=== PATIENT | female | born 1985 | race American Indian/Alaskan Native ===

== ENCOUNTER 2017-01-07 23:15 | Emergency (ER) | payer MEDICAID ==
[2017-01-07] MEDS ORDERED: Lactated Ringer's 1,000 ML IV SCH (23:45)
[2017-01-08 00:12] VITALS: BMI 28.3
[2017-01-08 01:07] LABS: RBC URINE 121 /hpf (0-3); URINE BACTERIA RARE (<OCC); URINE BILIRUBIN NEGATIVE (NEGATIVE); URINE BLOOD LARGE (NEGATIVE); URINE GLUCOSE (UA) NEG (Normal); URINE KETONE NEGATIVE (NEGATIVE); URINE LEUKOCYTE ESTERASE TRACE Leu/uL (Negative); URINE PROTEIN 100 mg/dL (NEGATIVE); URINE UROBILINOGEN 0.2-1.0 mg/dL (0.2-1.0); WBC URINE 8 /hpf (0-5)
[2017-01-08 01:08] LABS: URINE COLOR LIGHT RED (YELLOW)
[2017-01-08] MEDS ORDERED: Lactated Ringer's 1,000 ML IV ONE (01:32)
--- NOTE | 2017-01-08 07:44 | OBHP ---
Datetime: 01/08/2017 00:11 IP Adm Impression: Term, intrauterine IP Admit Plan: Observation/Evaluation Admit Comment, IP Provider: 31 y/o F , IUP@38.2 GA, ELLA 01/19/17. pt comes to [facility] c/o Bleeding p er vagina with urination. bleeding seen 20 mins ago, pink color blood about a tea spoon. pt admits tatum ving sex 2 days ago. no dysuria, burning or hx of UTI. pt denies any pain, nausea, vomiting, SOB or c hest pain. - good FM, no CTX/LOF PNC: [facility] women health services, Dr. Mcleod PNI: no issue with this so far PMH: none PSH: none POBH: unremarkable Allg: NKDA, lactose intolerance Meds: PNV SH: no alcohol, smoking or illicit drug use ROS: as per HPI VS: Afebrile, Stable 143/89 FHR reassuring PE: unremarkable speculum exam was done: no bleeding seen closed cervix , Intact membrane Urine with blood was collected A/P: 31 y/o F , IUP@38.2 GA, ELLA 01/19/17. pt comes to [facility] c/o Bleeding per vagina. - observe and re-evaluate - UA - monitor VS/CTX/FHR - IVF Case discussed and examined pt with Dr. Masters --- Yamel Colvin, PGY-1 addendum: UA is back, will start STAT Keflex 500mg and 1L IVF D/c home with 7 days Keflex 500mg BID discussed with Dr. Masters ---MOY, PGY-1 0BH addendum: Patient patient seen and examined by me agree. Agree with above assessment and past and plan was f paulaing additions and clarifications. Patient presents with complaints of having noted blood in her urine and a pinkish color when she wiped on the tissue. She denies abdominal pain contractions or low er back pain. Denies decrease fm, headaches, blurred vision, scotomata moderate, right upper quadrant pain. O: Sterile speculum exam: Positive whitish discharge no blood in the vault; gross hematuria noted on urine sample Plan: 1. As above 2. Increase water intake 3. Follow-up within 5 days at OB clinic Pelvic Type - PN: Adequate Extremities - PN: Normal Abdomen - PN: Normal Back - PN: Normal Breast - PN: Normal Lungs - PN: Normal Heart - PN: Normal Thyroid - PN: Normal Neurologic - PN: Normal HEENT - PN: Normal General - PN: Normal FHR - Baseline A Provider: 155 Membranes, Provider: Intact Comments, ACOG Physical Exam: speculum exam was done: no bleeding seen closed cervix , Intact membrane Pool Provider: Negative Vital Signs Provider: Reviewed; Within Normal Limits IP Chief Complaint: Vaginal bleeding NICHD Variability Prov Fetus A: Moderate 6-25bpm NICHD Accel Fetus A IP Provider: [id number] FHR Category Provider Fetus A: Category I NICHD Decel Fetus A IP Provider: None Dilatation, Provider: 0 Effacement, Provider: thick Station, Provider: high Genitourinary Exam: Normal DTRs - PN: Normal
[2017-01-08 11:17] VITALS: BP 137/80; PULSE 80; TEMP 98.8; O2SAT 100
== END 2017-01-08 03:05 | disposition home or self-care (01) ==
LOC: H.EROB2 23:15
DX: O47.1 False labor at or after 37 completed weeks of gestation (principal); Z3A.38 38 weeks gestation of pregnancy
CPT/HCPCS: 81003; 87086; 99283; J7120

== ENCOUNTER 2017-01-11 02:55 | Emergency (ER) | payer MEDICAID ==
[2017-01-11 04:50] LABS: BASO % 0.5 % (0.0-2.0); EOS % 0.6 % (0.0-4.0); HEMATOCRIT 35.1 % (34.0-47.0); LYMPH # 1.7 K/uL (1.0-4.3); LYMPH % 26.1 % (20.0-40.0); MEAN CELL VOLUME 90.8 fl (81.0-99.0); MEAN CORPUSCULAR HEMOGLOBIN 29.9 pg (27.0-31.0); MEAN CORPUSCULAR HGB CONC 32.9 g/dL (33.0-37.0); MEAN PLATELET VOLUME 11.2 fl (7.2-11.7); MONO # 0.9 K/uL (0.0-0.8); MONO % 13.5 % (0.0-10.0); NEUT # 3.8 K/uL (1.8-7.0); NEUT % 59.3 % (50.0-75.0); NRBC % 0.1 % (0.0-0.0); RED CELL DISTRIBUTION WIDTH 15.1 % (11.5-14.5); WHITE BLOOD COUNT 6.4 K/uL (4.8-10.8)
[2017-01-11 04:54] LABS: ALKALINE PHOSPHATASE 114 U/L (38-126); ALT/SGPT 53 U/L (9-52); AST/SGOT 37 U/L (14-36); BILIRUBIN,TOTAL 0.3 mg/dl (0.2-1.3); BLOOD UREA NITROGEN 9 mg/dl (7-17); CALCIUM 9.8 mg/dL (8.4-10.2); CARBON DIOXIDE 23 mmol/L (22-30); CHLORIDE 105 mmol/L (98-107); GFR AFRICAN-AMERICAN > 60; GLUCOSE,RANDOM 80 mg/dL (65-105); POTASSIUM 3.8 MMOL/L (3.6-5.0); SODIUM 139 mmol/l (132-148); TOTAL PROTEIN 6.9 G/DL (6.3-8.2); URIC ACID 4.3 mg/Dl (2.2-7.5)
[2017-01-11 04:56] LABS: PARTIAL THROMBOPLASTIN TIME 26.9 Seconds (25.6-37.1)
[2017-01-11 04:58] LABS: RBC URINE 10 /hpf (0-3); URINE BACTERIA RARE (<OCC); URINE BILIRUBIN NEGATIVE (NEGATIVE); URINE BLOOD LARGE (NEGATIVE); URINE COLOR YELLOW (YELLOW); URINE GLUCOSE (UA) NEG (Normal); URINE KETONE NEGATIVE (NEGATIVE); URINE LEUKOCYTE ESTERASE NEG Leu/uL (Negative); URINE PROTEIN 30 mg/dL (NEGATIVE); URINE UROBILINOGEN 0.2-1.0 mg/dL (0.2-1.0); WBC URINE 3 /hpf (0-5)
--- NOTE | 2017-01-11 05:47 | OBHP ---
Datetime: 01/11/2017 04:15 IP Adm Impression: Term, intrauterine IP Chief Complaint Other: Hematuria IP Admit Plan: Discharge home Admit Comment, IP Provider: 31 yo G1 at 38+6 wks w/ EDC 01/19/2017, reports that she noticed blood i n urine at 12 am, was seen in [facility] on 01/08/2017 for blood in urine and was sent home w/ rx cephalexi n 500 BID. Pt reports that there was more blood in her urine on 01/08/2017. Pt reports that the abx are causing diarrhea. Pt reports that she was nervous when she arrived here and that may be why her BP was elevated. Pt denies feeling ctxns, VB, LOF and reports movement. Pt reports that she has urinary frequency w/ the , denies dysuria. Pt denies DEUTSCH, changes in vision, abdominal p ain, N/V and back pain. Pt recieves her care at [facility]. 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 NST reactive. P t told to stop cephalexin and f/u w/ urology outpt. CBC nl, CMP nl except AST and ALT both elevated bby 1 point. Ua w/ large blood, rare bacteria. Pt given rx for CBC and CMP to be redrawn on Wed., 0 01/13/217. Also rec that she have her urine cx followed in clinic. Pt given PEC and labor precautio ns. Extremities - PN: Normal Abdomen - PN: Normal Back - PN: Normal Neurologic - PN: Normal General - PN: Normal FHR - Baseline A Provider: 120's Membranes, Provider: Intact Contraction Comments Provider: irregular EGA AdmitDate IP: 38.6 Vital Signs Provider: Reviewed IP Chief Complaint: Other NICHD Variability Prov Fetus A: Moderate 6-25bpm NICHD Accel Fetus A IP Provider: [id number] FHR Category Provider Fetus A: Category I NICHD Decel Fetus A IP Provider: None Dilatation, Provider: 1 Effacement, Provider: 80 Station, Provider: -1 Genitourinary Exam: Normal
--- NOTE | 2017-01-11 05:47 | OBDCSUM ---
Datetime: 01/11/2017 05:37 Discharged to, Provider: Home Follow up at, Provider: [facility] Disch Instr Activity: Normal activity Disch Instr Diet: Regular Discharge Instructions, Provider: Routine instructions given Discharge Time: 01/11/2017 05:38 Follow up in weeks, Provider: 01/13/2017 @ 0320 pm as scheduled Disch Referrals: None Contraception discussed, Prov: No Disch Activity Restrictions: No exercising Discharge Diagnosis Prov Other: Gross hematuria at 38+ weeks
[2017-01-11 10:35] VITALS: BP 130/79; PULSE 68; RESP 18; TEMP 98; O2SAT 100
== END 2017-01-11 05:40 | disposition home or self-care (01) ==
LOC: H.EROB2 02:55
DX: O26.93 Pregnancy related conditions, unspecified, third trimester (principal); R31.9 Hematuria, unspecified; Z3A.38 38 weeks gestation of pregnancy

== ENCOUNTER 2017-01-12 11:57 | Inpatient (IN) | payer MEDICAID ==
[2017-01-12 13:22] LABS: HEMATOCRIT 35.8 % (34.0-47.0); MEAN CELL VOLUME 90.7 fl (81.0-99.0); MEAN CORPUSCULAR HEMOGLOBIN 29.6 pg (27.0-31.0); MEAN CORPUSCULAR HGB CONC 32.6 g/dL (33.0-37.0); RED CELL DISTRIBUTION WIDTH 15.3 % (11.5-14.5); WHITE BLOOD COUNT 7.1 K/uL (4.8-10.8)
[2017-01-12 13:41] LABS: ALB/GLOB RATIO 1.1 (1.0-2.1); ALKALINE PHOSPHATASE 114 U/L (38-126); ALT/SGPT 48 U/L (9-52); AST/SGOT 32 U/L (14-36); BILIRUBIN,TOTAL 0.5 mg/dl (0.2-1.3); BLOOD UREA NITROGEN 7 mg/dl (7-17); CALCIUM 9.7 mg/dL (8.4-10.2); CARBON DIOXIDE 23 mmol/L (22-30); CHLORIDE 106 mmol/L (98-107); GFR AFRICAN-AMERICAN > 60; GLUCOSE,RANDOM 60 mg/dL (65-105); POTASSIUM 3.7 MMOL/L (3.6-5.0); SODIUM 137 mmol/l (132-148); TOTAL PROTEIN 6.9 G/DL (6.3-8.2); URIC ACID 4.4 mg/Dl (2.2-7.5)
[2017-01-12] MEDS ORDERED: Penicillin G 5 Million Unit Vial IVPB ONE ×2 (13:53→22:29)
[2017-01-12] MEDS: Lactated Ringer's 1,000 ML IV SCH ×3 (14:30→18:20)
--- NOTE | 2017-01-12 15:46 | OBHP ---
Datetime: 01/12/2017 13:25 IP Adm Impression: Term, intrauterine IP Admit Plan: Admit to unit Abdomen - PN: Normal Back - PN: Normal Lungs - PN: Normal Heart - PN: Normal Thyroid - PN: Normal Neurologic - PN: Normal HEENT - PN: Normal General - PN: Normal FHR - Baseline A Provider: 145 Comments, ACOG Physical Exam: Fetus vertex presentation EGA AdmitDate IP: 39.0 Vital Signs Provider: Reviewed Vital Signs Provider Details: Blood pressure : 140/83 IP Indication for Induction: Other IP Indication for Induction Oth: lagging growth x 4 weeks, and HC IP Chief Complaint: Uterine contractions NICHD Variability Prov Fetus A: Moderate 6-25bpm NICHD Accel Fetus A IP Provider: [id number] NICHD Decel Fetus A IP Provider: None Datetime: 01/12/2017 13:13 Admit Comment, IP Provider: 31 yo G1 at 39 wks w/ EDC 01/19/2017, was sent to l and D from [facility], te r she had her ultrasound done, and is showing the BPD is lagging by 4 weeks and HC is lagging b y 4 weeks. Previous U/S two weeks earlier showed the fetus was lagging by 2 weeks. Patient denies a ny CTX, LOF, VB. She has positive movments. - She as noted blood in her urine for which she was given keflex, for possible UTI but then was ca lled to not take it after her urine results came back negative. - PAtients earlier U/S had showed persistent umbilical vein, for which viral studies were done and showed negative. echo was scheduled but patient had issues with her insurance and was not able to get them done. POBHx: U/S has shown decrease in growth currently lagging by 4 weeks, BPD lagging by 4 weeks. With a persistent umbilical vein noted. 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 - Intiate labor protocol - Pen G 5mu loading followed by 2.5 mu Q4 for treatment of penicillin G - LAbs: CBC, type and screen Lamine Mcleod PGY-2 OB Hospitalist on-call: With PGY 2, I saw and examined this patient. Agree with above note... IUP at 39w; low AF (6cm); early labor; GBS+ (results just obtained) PLAN: admit; Discussion with patient about labor, pain managment, deliver, methods/meds augmentati on and . Her questions were answered. Presentation-Admit: Vertex Membranes, Provider: Intact Pool Provider: Negative IP Hx Assessment: The History has been Reviewed and is Current FHR Category Provider Fetus A: Category I Dilatation, Provider: 2 Effacement, Provider: 50 Station, Provider: -2
--- NOTE | 2017-01-12 17:01 | OBPN ---
Datetime: 01/12/2017 16:50 IP Progress Impression: Normal progression of labor; Reassuring heart rate; Reactive non-stres s test IP Informed Consent Obtain: Vaginal Delivery; Risks, Benefits and Alternatives Discussed IP Procedures: Artificial ROM IP Progress Plan: Continue present management; Augmentation Pool Provider: Positive Membranes, Provider: Ruptured Amniotic Fluid Color, Provider: Clear Contraction Comments Provider: 2-5m FHR - Baseline A Provider: 130 Presentation-Admit: Vertex IP Progress Note Comment: SHe is feeling some CTX pain. 08/17. She appears comfortable SVE 50/-2 A; IUP at 39w latent phase of labor AROM/Pitocin at 6miu/h NICHD Accel Fetus A IP Provider: [id number] FHR Category Provider Fetus A: Category I NICHD Variability Prov Fetus A: Moderate 6-25bpm Dilatation, Provider: 2 Effacement, Provider: 50 Station, Provider: -2 NICHD Decel Fetus A IP Provider: None Datetime: 01/12/2017 13:25 Vital Signs Provider: Reviewed Vital Signs Provider Details: Blood pressure : 140/83
[2017-01-12] MEDS: Penicillin G Potassium 2.5 MU in Sodium Chloride 0.9% 100 ML IVPB SCH ×2 (18:00→22:20)
[2017-01-12] MEDS ORDERED: Fentanyl/Bupivacaine HCl 250 ML EPI ONE (19:16)
--- NOTE | 2017-01-13 00:40 | OBPN ---
Datetime: 01/13/2017 00:10 IP Progress Impression: Normal progression of labor; Reassuring heart rate; Rupture of membran es IP Informed Consent Obtain: Vaginal Delivery; Risks, Benefits and Alternatives Discussed IP Progress Plan: Continue present management; Augmentation Pool Provider: Negative Membranes, Provider: Ruptured Amniotic Fluid Color, Provider: Clear Contraction Comments Provider: 2-3m FHR - Baseline A Provider: 140 IP Progress Note Comment: She was c/o pain prior to shift change and wanted epidural. She rec'd epid ural arond 19:430pm. She has been comfortable. She was checked afterwards and noted to be 4cm. Now 8cm. Some diarrhea noted (pt states that she had diarrhea before coming into hospital) A; active phase of labor GBS+ low ERIKA PLAN: cont Pitocin currently at 8miu/h; continue nipple stim as discussed Sheets in place NICHD Accel Fetus A IP Provider: [id number] FHR Category Provider Fetus A: Category I NICHD Variability Prov Fetus A: Moderate 6-25bpm Dilatation, Provider: 8 Effacement, Provider: 90 Station, Provider: -1 NICHD Decel Fetus A IP Provider: None Datetime: 01/12/2017 21:14 IP Procedures: Artificial ROM Vital Signs Provider: Reviewed; Within Normal Limits
[2017-01-13] MEDS ORDERED: Lidocaine 1% Inj (20ml) ONE (01:05)
[2017-01-13] MEDS: Lactated Ringer's 1,000 ML IV SCH (01:22)
[2017-01-13] MEDS ORDERED: Penicillin G 5 Million Unit Vial IVPB ONE (02:16)
[2017-01-13] MEDS: Penicillin G Potassium 2.5 MU in Sodium Chloride 0.9% 100 ML IVPB SCH (02:21)
[2017-01-13] MEDS ORDERED: Benzocaine/Menthol SPRAY TOP PRN (06:12)
[2017-01-13] MEDS ORDERED: Oxycodone/Acetaminophen 5/325 mg Tab PO PRN ×2 (06:12)
[2017-01-14 08:02] LABS: BASO % 0.2 % (0.0-2.0); EOS % 0.3 % (0.0-4.0); HEMATOCRIT 28.9 % (34.0-47.0); LYMPH # 2.2 K/uL (1.0-4.3); LYMPH % 19.5 % (20.0-40.0); MEAN CELL VOLUME 90.5 fl (81.0-99.0); MEAN CORPUSCULAR HEMOGLOBIN 29.4 pg (27.0-31.0); MEAN CORPUSCULAR HGB CONC 32.4 g/dL (33.0-37.0); MEAN PLATELET VOLUME 10.8 fl (7.2-11.7); MONO # 1.1 K/uL (0.0-0.8); MONO % 10.2 % (0.0-10.0); NEUT # 7.8 K/uL (1.8-7.0); NEUT % 69.8 % (50.0-75.0); RED CELL DISTRIBUTION WIDTH 15.3 % (11.5-14.5); WHITE BLOOD COUNT 11.2 K/uL (4.8-10.8)
--- NOTE | 2017-01-15 00:50 | OBPPN ---
Datetime: 01/14/2017 05:52 PP Pain Prov: Within normal limits PP Nausea Prov: Denies PP Flatus Prov: Yes PP BM Prov: Yes PP Breasts Prov: Not Done PP Heart Prov: Normal PP Lungs Prov: Normal PP Abdomen/Uterus Prov: Normal PP Lochia Prov: Normal PP Vulva/Perineum Prov: Not Done PP CVA Tenderness Prov: Normal PP Extremities Prov: Normal PP C/S Incision Prov: Not Applicable PP Progress Prov: Normal PP Impression Prov: Normal progression PP Plan Prov: Continue present management PP Progress Note Prov: S: 31 yo s/p NVD on 01/13/17 at 05:57. Pt. is seen and examined at bedside this AM. No overnight events. Pt denies pain. Pt is ambulating without any difficulties. Breast feed ing baby. Tolerating PO diet. Lochia is similar to light menses in volume. Voiding freely, Bowel move ment, and passing gas per rectum. Denies fever/chills, diarrhea, nausea/vomiting, chest pain, dyspnea , and dizziness. Of note, O: VS: stable GEN: NAD Cardio: s1s2, no M/G/R Resp: clear breath sounds b/l Abdomen: BS+, NT, Uterus is firm and at the level of the umbilicus. EXT: BL LE non pitting edema, calves nontender NEURO/PSYCHI: AAOx3, no grossly focal deficit, preserved affect and mood. Assessment/Plan: 31 yo s/p NVD on 01/13/17 at 05:57. Pt remains afebrile, tolerating pain with medication, tolerating PO intake, doing well on POD1. OOB with caution pt ambulating Ibuprofen 600mg for pain. Colace 100mg PO BID for constipation Encourage and ambulating F/u CBC post-delivery: pending results --- Osmani Hall, PGY-1 Vital Signs Provider PP: Reviewed; Within Normal Limits
--- NOTE | 2017-01-15 13:32 | OBDCSUM ---
Datetime: 01/15/2017 06:01 Discharged to, Provider: Home Follow up at, Provider: [facility] Disch Instr Activity: Normal activity; May be up to bathroom; May be up for meals; May Shower Disch Instr Diet: Regular Discharge Instructions, Provider: Routine instructions given Discharge Diagnosis, Provider: Term Delivered Discharge Time: 01/15/2017 12:00 Follow up in weeks, Provider: 3-7 days for peds/ 4-6 weeks post Disch Referrals: None Contraception discussed, Prov: Yes Disch Activity Restrictions: Minimize stair-climbing; No sexual activity; Nothing in vagina - Interc ourse, tampons, douche Discharge Comment, Provider: DOA: 01/13/2017 EGA: 39 wks Diagnosis: Vagnial delivery term PRisk factors: none summary of : 31 yo F L_D summary: DOL: 01/13/2017 at 05:57 NVD NB: Female : 01/16 Weight: 3000g PP summary: No serious complications during PP. Lochia= menses, mild pain, controlled with medications Rubella immune, Tdap: 11/16/2016 blood type: O+ CBC pp: 9.4/28.9 Discharge Date 01/15/2017 , time 12:00 PM Discharge Instructions: -encourage -percocet/Ibuprofen for pain PRN -Colace for constipation -Ambulate as tolerated -f/u NB visit and PP visit --- Osmani Hall, PGY-1 Patient was cleared for discharge patient was seen with the resident and agree with
--- NOTE | 2017-01-15 13:33 | OBPPN ---
Datetime: 01/15/2017 05:57 PP Pain Prov: Within normal limits PP Nausea Prov: Denies PP Flatus Prov: Yes PP BM Prov: Yes PP Breasts Prov: Not Done PP Heart Prov: Normal PP Lungs Prov: Normal PP Abdomen/Uterus Prov: Normal PP Lochia Prov: Normal PP Vulva/Perineum Prov: Not Done PP CVA Tenderness Prov: Normal PP Extremities Prov: Normal PP C/S Incision Prov: Not Applicable PP Progress Prov: Normal PP Impression Prov: Normal progression PP Plan Prov: Discharge PP Progress Note Prov: S: 31 yo s/p NVD on 01/13/17 at 05:57. Pt. is seen and examined at bedside this AM. No overnight events. Pt denies pain. Pt is ambulating without any difficulties. Breast feed ing baby. Tolerating PO diet. Lochia is similar to light menses in volume. Voiding freely, Bowel move ment, and passing gas per rectum. Denies fever/chills, diarrhea, nausea/vomiting, chest pain, dyspnea , and dizziness. Of note, O: VS: stable GEN: NAD Cardio: s1s2, no M/G/R Resp: clear breath sounds b/l Abdomen: BS+, NT, Uterus is firm and at the level of the umbilicus. EXT: BL LE non pitting edema, calves nontender NEURO/PSYCHI: AAOx3, no grossly focal deficit, preserved affect and mood. Assessment/Plan: 31 yo s/p NVD on 01/13/17 at 05:57. Pt remains afebrile, tolerating pain with medication, tolerating PO intake, doing well on PPD2. OOB with caution pt ambulating Ibuprofen 600mg for pain. Colace 100mg PO BID for constipation Encourage and ambulating F/u CBC post-delivery: 9.4/28.9 Prescribed Ferrous Sulfate 325 mg. --- Osmani Hall, PGY-1 The patient was seen with the resident I agree with an outpatient cleared for discharge IP PP Procedures: None Vital Signs Provider PP: Reviewed; Within Normal Limits
[2017-01-15 18:41] VITALS: BP 131/88; PULSE 70; RESP 20; TEMP 98.5; O2SAT 98
== END 2017-01-15 13:31 | disposition home or self-care (01) | DRG 373 ==
LOC: H.EROB2 11:57 → H.L&D 12:27 → H.OB/GYN 01-13 08:45
PROVIDERS: ADMIT Obstetrics & Gynecology; ATTEND Obstetrics & Gynecology
PROC: 10E0XZZ Delivery of Products of Conception, External Approach (ICD-10-PCS; principal; 2017-01-12)
PROC: 4A1HXCZ Monitoring of Products of Conception, Cardiac Rate, External Approach (ICD-10-PCS; 2017-01-12)
DX: O36.5930 Maternal care for other known or suspected poor fetal growth, third trimester, not applicable or unspecified (principal); K59.00 Constipation, unspecified; Z37.0 Single live birth; O99.824 Streptococcus B carrier state complicating childbirth; O99.89 Other specified diseases and conditions complicating pregnancy, childbirth and the puerperium; Z3A.39 39 weeks gestation of pregnancy